=== PATIENT | male | born 1955 | race Caucasian/White ===

== ENCOUNTER 2017-02-07 08:04 | Outpatient (CLI) | payer MEDICARE, OTHER ==
[~2017-02-07] VITALS: Ht 185.4 cm; Wt 89.3 kg
[~2017-02-07 08:04] MED LIST: AMBIEN CR 12.12.5 MG PO; MOBIC15 MG PO; MORPHINE 1515 MG/TAB PO; MS CONTIN 330 MG/TAB PO; ZESTRIL 10MG10 MG PO
[2017-02-07 08:20] VITALS: BP 157/97; PULSE 74
[2017-02-07 10:00] VITALS: BP 141/96; PULSE 72
[2017-02-07 10:15] VITALS: BP 134/89; PULSE 71
[2017-02-07 10:30] VITALS: BP 129/87; PULSE 70
[2017-02-07 10:45] VITALS: BP 128/88; PULSE 67
[2017-02-07 11:00] VITALS: BP 129/98; PULSE 75; TEMP 97.9
== END 2017-02-07 13:06 | disposition home or self-care (01) ==
LOC: COL.RAD 08:04
DX: M48.06 Spinal stenosis, lumbar region (principal); M47.26 Other spondylosis with radiculopathy, lumbar region; M41.86 Other forms of scoliosis, lumbar region; Z98.1 Arthrodesis status
CPT/HCPCS: Q9965

== ENCOUNTER → 2018-12-23 | Outpatient (CLI) | payer MEDICARE, OTHER | LOC: COL.RAD 07:13 | DX: Z13.6 Encounter for screening for cardiovascular disorders (principal) ==

== ENCOUNTER 2019-02-27 10:14 | Inpatient (IN) | payer MEDICARE, OTHER ==
[~2019-02-27] VITALS: Ht 185.4 cm; Wt 83.0 kg
[2019-04-14] VITALS (11 sets, daily range): BP systolic 110–138; BP diastolic 63–95; PULSE 56–103; TEMP 97–98.3
[2019-04-14] MEDS ORDERED: MS CONTIN 115 MG/TAB PO (06:10)
[2019-04-14] MEDS ORDERED: AMBIEN 10MG10 MG PO (06:13)
--- NOTE | 2019-04-14 06:27 | NUR ---
Pt. arrived to the floor ambulating independently. Pt. is A&OX3, assessment complete. 20 G iv started to lt. forearm. Pt. given pre op meds per orders. Pt. denies further needs.
--- NOTE | 2019-04-14 11:50 | NUR ---
PT TO ROOM 330 PER BED WITH [facility] PERIOP TRANSPORTING @ 1140. REPORT FROM [facility] PACU. PT IS A/O X3, LUNGS CLEAR, BOWEL SOUNDS PRESENT. STEIN CATHETER TO DD WITH CLEAR YELLOW URINE IN BAG. DRESSING TO RIGHT KNEE CDI WITH TOM WRAP OVER BULKY DRESSINGS. IV TO PUMP PER ORDERS. PT IS EATING AND DRINKING WITH NO N/V.
--- NOTE | 2019-04-14 13:25 | NUR ---
SW met with patient and to discuss discharge planning. Patient lives independently at home with his and plans to return home upon discharge. Patient's PCP is Dr Sullivan and he obtains prescriptions from [facility]. Patient reports he has had issue paying for medications in the past but does not currently. Patient has a walker for after surgery but no other DME or required. Patient does not use any home health services and is independent with ADLs. Patient has out patient PT scheduled in [place]. [facility] does not anticipate any discharge needs.
--- NOTE | 2019-04-14 18:53 | NUR ---
REPORT TO LEONARDO.
--- NOTE | 2019-04-14 21:40 | NUR ---
Pt. sitting up in bed watching TV. Pt. is A&OX3, assessment complete. IV to lt. forearm patent, IV fluids infusing per orders. Dressing to rt. Knee CDI. Pt. reports pain at a 3 on pain scale. Pt. denies further needs.
[2019-04-15] VITALS (7 sets, daily range): BP systolic 121–158; BP diastolic 71–80; PULSE 75–98; TEMP 97.6–98.7
[2019-04-15 06:08] LABS: HEMOGLOBIN 11.9 g/dl (13.5-18.0)
[2019-04-15 06:32] LABS: HEMATOCRIT 33.6 % (42.0-52.0)
--- NOTE | 2019-04-15 07:01 | NUR ---
Report from Kt SHEEHAN.
--- NOTE | 2019-04-15 09:36 | NUR ---
PATIENT WORKING WITH [facility] THIS AM. DRESSING TO RIGHT KNEE CDI. PAIN CONTROLLED WITH PO MEDS. EATING AND DRINKING WITHOUT N/V. TEDS AND SCDS BILATERALLY. PLAN ON DRESSING CHANGE AND STEIN REMOVAL AFTER THERAPY.
[2019-04-16 03:39] VITALS: BP 136/87; PULSE 102; TEMP 98.2
[2019-04-16 06:43] LABS: HEMOGLOBIN 11.2 g/dl (13.5-18.0)
[2019-04-16 06:44] LABS: HEMATOCRIT 32.5 % (42.0-52.0)
[2019-04-16 07:36] VITALS: BP 144/81; PULSE 102; TEMP 98.6
--- NOTE | 2019-04-16 08:00 | NUR ---
Patient A&Ox4. VSS. IV CDI. Reporting pain in RT Knee, pain medication given when requested. Leg elevated on pillow. No further needs expressed from the patient. Call light within reach
[2019-04-16] MEDS ORDERED: ASPI325T6 PO (10:09)
[2019-04-16] MEDS ORDERED: ROXICODONE 55 MG/TAB PO (10:10)
[2019-04-16] MEDS ORDERED: TYLENOL 500MG500 MG PO (10:10)
[2019-04-16] MEDS ORDERED: COLACE 100100 MG/CAP PO (10:11)
[2019-04-16 12:26] VITALS: BP 106/54; PULSE 97; TEMP 98.7
--- NOTE | 2019-04-16 16:19 | NUR ---
Discharge paperwork reviewed with patient and . Patient verbalized an understanding of following doctors orders. IV removed tip intact gauze and bandaid applied. Patient tolerated well. Personal belongings and discharge paperwork with patient. Patient transfered by wheelchair to vehicle by nursing staff. No further needs expressed from patient
== END 2019-04-16 16:20 | disposition home or self-care (01) | DRG 470 ==
LOC: JCC 04-14 05:31
PROVIDERS: ADMIT Orthopaedic Surgery
PROC: 0SRC0J9 Replacement of Right Knee Joint with Synthetic Substitute, Cemented, Open Approach (ICD-10-PCS; principal; 2019-04-14 07:30)
DX: M17.11 Unilateral primary osteoarthritis, right knee (principal)
CPT/HCPCS: A4314; A9284; C1713; C1776; J0360; J0690; J1100; J1170; J1885; J2175; J2250; J2274; J2704; J3010; J7120

== ENCOUNTER → 2019-04-20 | Outpatient (CLI) | payer MEDICARE, OTHER ==
[~2019-04-20] MED LIST changes: +AMBIEN 10MG10 MG PO; +ASPI325T6 PO; +COLACE 100100 MG/CAP PO; +MS CONTIN 115 MG/TAB PO; +ROXICODONE 55 MG/TAB PO; +TYLENOL 500MG500 MG PO
== END ==
LOC: COL.VAS 10:04
DX: R60.0 Localized edema (principal)

== ENCOUNTER → 2021-05-04 | Outpatient (CLI) | payer MEDICARE | LOC: COL.RAD 13:15 | DX: M43.26 Fusion of spine, lumbar region (principal); M48.061 Spinal stenosis, lumbar region without neurogenic claudication; M54.14 Radiculopathy, thoracic region; Z98.890 Other specified postprocedural states | CPT/HCPCS: A9585 ==